=== PATIENT | female | born 1930 | race African-American/Black ===

== ENCOUNTER → 2016-04-26 | Outpatient (CLI) | payer MEDICARE, MEDICAID ==
[~2016-04-26] MED LIST: ALPR0.25 PO; LATA0.00 OP; LATA0.0015 EACHEYE; METO25TA62 PO; MEX150C PO; NYS5LQ PO; NYSTPOW; OMEP20CA5 PO; [UNRECOGNIZED DRUG - CODE] EX
== END | disposition home or self-care (01) ==
LOC: Rad HDHVI 10:10
PROVIDERS: ATTEND Internal Medicine Cardiovascular Disease
DX: I10 Essential (primary) hypertension (principal); R06.02 Shortness of breath
CPT/HCPCS: 93306

== ENCOUNTER → 2016-05-02 | Outpatient (CLI) | payer MEDICARE, MEDICAID ==
[~2016-05-02] VITALS: Ht 160 cm; Wt 52.2 kg
[~2016-05-02] MED LIST changes: +ADENOSINE 44 MG in GIVE UN-DILUTED 0 ML IV ONE; +ADENOSINE 90 MG/30 ML INJ IV ONE
== END | disposition home or self-care (01) ==
LOC: Rad HDHVI 13:23
PROVIDERS: ATTEND Internal Medicine Cardiovascular Disease
DX: R06.02 Shortness of breath (principal); I10 Essential (primary) hypertension; J44.9 Chronic obstructive pulmonary disease, unspecified; E78.00 Pure hypercholesterolemia, unspecified; R00.2 Palpitations
CPT/HCPCS: 78452; 93005; 96374; 96375; A9500; J0153

== ENCOUNTER → 2016-05-11 | Outpatient (CLI) | payer MEDICARE, MEDICAID ==
[~2016-05-11] MED LIST changes: -ADENOSINE 44 MG in GIVE UN-DILUTED 0 ML IV ONE; -ADENOSINE 90 MG/30 ML INJ IV ONE
[2016-05-11 12:34] LABS: Basophils # (auto) 0 uL; Basophils % (auto) 0.7 % (0.0-2.0); Eosinophils # (auto) 0.1 uL; Eosinophils % (auto) 1.9 % (0.0-7.0); Hematocrit 42.4 % (36.0-46.0); Hemoglobin 13.5 g/dL (12.2-16.2); Lymphocytes # (auto) 1.1 uL; Lymphocytes % (auto) 23.7 % (10.0-50.0); Mean Corpuscular Hemoglobin 28.5 pg (28.0-32.0); Mean Corpuscular Hgb Conc. 31.9 g/dL (32.0-36.0); Mean Corpuscular Volume 89.4 fL (80.0-100.0); Mean Platelet Volume 8.7 fL (7.4-10.4); Monocytes # (auto) 0.4 uL; Neutrophils # (auto) 3.1 uL; Neutrophils % (auto) 64.7 % (37.0-80.0); Platelet Count (auto) 299 10^3/uL (140-450); Red Cell Distribution Width 16.6 % (11.6-16.0); Urine Bilirubin Negative (Negative); Urine Blood Negative /uL (Negative); Urine Color Yellow (Yellow); Urine Glucose Normal (Normal); Urine Ketone Negative (Negative); Urine Nitrite Negative (Negative); Urine Urobilinogen Normal (Negative); Urine pH 5.5 (5.0-8.0); White Blood Cell 4.8 10^3/uL (4.4-10.8)
[2016-05-11 12:48] LABS: Albumin 3.7 g/dL (3.4-5.0); Alkaline Phosphatase 70 U/L (45-117); Anion Gap 12 (5-15); Aspartate Aminotransferase 13 U/L (15-37); BUN/Creatinine Ratio 30.2; Bilirubin, Direct < 0.1 mg/dL (0-0.2); Bilirubin, Total 0.2 mg/dL (0.2-1.0); Blood Urea Nitrogen 16 mg/dL (7-18); Calcium 9.1 mg/dL (8.5-10.1); Carbon Dioxide 27 mmol/L (21-32); Chloride 109 mmol/L (98-107); Cholesterol 200 mg/dL (<200); GFR African American 141 mL/min; GFR Non-African American 116 mL/min; Glucose 106 mg/dL (74-106); HDL Cholesterol 84 mg/dL (40-59); LDL Cholesterol 109 mg/dL (<100); Potassium 4.3 mmol/L (3.5-5.1); Sodium 148 mmol/L (136-145); Total Protein 7.3 g/dL (6.4-8.2); Triglycerides 71 mg/dL (<150)
== END | disposition home or self-care (01) ==
LOC: LAB 09:11
PROVIDERS: ATTEND Internal Medicine Cardiovascular Disease
DX: I10 Essential (primary) hypertension (principal); E78.00 Pure hypercholesterolemia, unspecified; K74.1 Hepatic sclerosis; E11.9 Type 2 diabetes mellitus without complications; E03.9 Hypothyroidism, unspecified; D64.9 Anemia, unspecified; E55.9 Vitamin D deficiency, unspecified; N39.0 Urinary tract infection, site not specified
CPT/HCPCS: 36415; 80048; 80061; 80076; 81003; 82306; 83036; 84443; 85025; 87086

== ENCOUNTER → 2016-06-06 | Outpatient (CLI) | payer MEDICARE, MEDICAID ==
[2016-06-06 16:01] LABS: Urine Bilirubin Negative (Negative); Urine Blood Negative /uL (Negative); Urine Color Yellow (Yellow); Urine Glucose Normal (Normal); Urine Ketone Negative (Negative); Urine Nitrite Negative (Negative); Urine Urobilinogen Normal (Negative); Urine pH 5.5 (5.0-8.0)
== END | disposition home or self-care (01) ==
LOC: LAB 10:18
PROVIDERS: ATTEND Internal Medicine Cardiovascular Disease
DX: N39.0 Urinary tract infection, site not specified (principal)
CPT/HCPCS: 81003; 87086

== ENCOUNTER → 2016-07-26 | Outpatient (CLI) | payer MEDICARE, MEDICAID ==
[2016-07-26 16:12] LABS: Urine Bilirubin Negative (Negative); Urine Blood Negative /uL (Negative); Urine Color Yellow (Yellow); Urine Glucose Normal (Normal); Urine Ketone Negative (Negative); Urine Nitrite Negative (Negative); Urine Urobilinogen Normal (Negative)
== END | disposition home or self-care (01) ==
LOC: LAB 11:32
PROVIDERS: ATTEND Internal Medicine Cardiovascular Disease
DX: N39.0 Urinary tract infection, site not specified (principal)
CPT/HCPCS: 81003; 87086

== ENCOUNTER → 2016-09-06 | Outpatient (CLI) | payer MEDICARE, MEDICAID ==
[~2016-09-06] MED LIST changes: -OMEP20CA5 PO; +OMEP20CA74 PO
== END | disposition home or self-care (01) ==
LOC: LAB 13:01
PROVIDERS: ATTEND Internal Medicine Cardiovascular Disease
DX: N39.0 Urinary tract infection, site not specified (principal)
CPT/HCPCS: 87086

== ENCOUNTER → 2016-09-20 | Outpatient (CLI) | payer MEDICARE, MEDICAID | END | disposition home or self-care (01) | LOC: LAB 12:21 | PROVIDERS: ATTEND Internal Medicine Cardiovascular Disease | DX: E43 Unspecified severe protein-calorie malnutrition (principal) | CPT/HCPCS: 36415; 82040 ==

== ENCOUNTER → 2016-10-12 | Outpatient (CLI) | payer MEDICARE, MEDICAID ==
[2016-10-12 16:30] LABS: Basophils # (auto) 0 uL; Basophils % (auto) 0.5 % (0.0-2.0); CONDITION Y; Eosinophils # (auto) 0.1 uL; Eosinophils % (auto) 1.2 % (0.0-7.0); Hematocrit 44.9 % (36.0-46.0); Hemoglobin 14.5 g/dL (12.2-16.2); Lymphocytes # (auto) 1.5 uL; Mean Corpuscular Hemoglobin 29.5 pg (28.0-32.0); Mean Corpuscular Hgb Conc. 32.4 g/dL (32.0-36.0); Mean Corpuscular Volume 90.9 fL (80.0-100.0); Mean Platelet Volume 8.5 fL (7.4-10.4); Monocytes # (auto) 0.5 uL; Monocytes % (auto) 7.2 % (0.0-12.0); Neutrophils # (auto) 4.3 uL; Neutrophils % (auto) 68.1 % (37.0-80.0); Platelet Count (auto) 320 10^3/uL (140-450); Red Cell Distribution Width 13.8 % (11.6-16.0); White Blood Cell 6.4 10^3/uL (4.4-10.8)
[2016-10-12 16:49] LABS: BUN/Creatinine Ratio 27.4; Bilirubin, Total 0.4 mg/dL (0.2-1.0); Calcium 9.4 mg/dL (8.5-10.1); Potassium 3.5 mmol/L (3.5-5.1); Total Protein 8.3 g/dL (6.4-8.2)
== END | disposition home or self-care (01) ==
LOC: LAB 11:30
PROVIDERS: ATTEND Internal Medicine Cardiovascular Disease
DX: I10 Essential (primary) hypertension (principal); E03.9 Hypothyroidism, unspecified; D64.9 Anemia, unspecified; R97.0 Elevated carcinoembryonic antigen [CEA]
CPT/HCPCS: 36415; 80053; 82378; 84443; 85025

== ENCOUNTER → 2016-12-11 | Outpatient (CLI) | payer MEDICARE, MEDICAID ==
[~2016-12-11] MED LIST changes: -LATA0.00 OP; +LATA0.0020 OP
== END | disposition home or self-care (01) ==
LOC: Rad HDHVI 15:41
PROVIDERS: ATTEND Internal Medicine Cardiovascular Disease
DX: I73.9 Peripheral vascular disease, unspecified (principal)
CPT/HCPCS: 93880

== ENCOUNTER → 2017-01-08 | Outpatient (CLI) | payer MEDICARE, MEDICAID ==
[2017-01-08 16:25] LABS: Urine Bilirubin Negative (Negative); Urine Blood Negative /uL (Negative); Urine Glucose Normal (Normal); Urine Ketone Negative (Negative); Urine Mucus FEW (None Seen); Urine Nitrite Negative (Negative); Urine RBC <1 /hpf (0 - 4); Urine Squamous Epithelial Cell FEW /hpf (<5); Urine Urobilinogen Normal (Negative); Urine pH 5.5 (5.0-8.0)
== END | disposition home or self-care (01) ==
LOC: LAB 01-07 14:02
PROVIDERS: ATTEND Internal Medicine Cardiovascular Disease
DX: N39.0 Urinary tract infection, site not specified (principal)
CPT/HCPCS: 81001; 87086

== ENCOUNTER 2017-08-12 14:17 | Emergency (ER) | payer OTHER, MEDICAID ==
[~2017-08-12] VITALS: Ht 160 cm; Wt 46.7 kg
[2017-08-12 18:38] VITALS: BP 98/61
== END 2017-08-12 18:41 | disposition home or self-care (01) ==
LOC: ER 14:17
DX: S09.90XA Unspecified injury of head, initial encounter (principal); J45.909 Unspecified asthma, uncomplicated; K21.9 Gastro-esophageal reflux disease without esophagitis; E78.5 Hyperlipidemia, unspecified; Z88.0 Allergy status to penicillin; Z88.2 Allergy status to sulfonamides; Z88.1 Allergy status to other antibiotic agents; W19.XXXA Unspecified fall, initial encounter; Y93.89 Activity, other specified; Y99.8 Other external cause status; Y92.89 Other specified places as the place of occurrence of the external cause
CPT/HCPCS: 70450